=== PATIENT | male | born 1960 | race Caucasian/White ===

== ENCOUNTER 2024-11-16 13:34 | Emergency (ER) | payer MEDICAID, SELFPAY ==
[2024-11-16 13:35] VITALS: BMI 30.7
[2024-11-16 13:44] VITALS: BP 180/99; PULSE 81; RESP 18; TEMP 36.8; O2SAT 95
--- NOTE | 2024-11-16 14:02 | EDNOTE_ITS ---
Upper Extremity Injury RME/HPI General Chief Complaint: Hand/Wrist Problems Stated Complaint: INJURY TO LEFT HAND WITH SAW Time Seen by Provider: 11/16/24 13:51 Arrival date/time: 11/16/24 13:34 RME / HPI RME / HPI narrative: 64-year-old male patient came in for evaluation regarding multiple finger laceration with a table saw. Incident happened few minutes prior to ER visit. Patient sustained laceration to the left thumb, ring finger and middle finger, able to bend and extend the fingers without any limitation. Tetanus vaccination is unknown Related Data Previous Rx's ?Medication ?Instructions ?Recorded cephalexin 500 mg capsule 500 mg PO TID 7 days #21 cap s 11/16/24 ibuprofen 800 mg tablet 800 mg PO Q8H PRN pain #30 t abs 11/16/24 Allergies Allergy/AdvReac Type Severity Reaction Status Date / Time No Known Allergies Allergy Verified 11/16/24 13:36 Review of Systems Review of Systems Narrative Review of Systems: Review of system reviewed and within normal limits except mentioned in HPI ED Exam Narrative Physical exam: VITAL SIGNS: Reviewed. GENERAL APPEARANCE: Alert and interactive, follows commands, no acute distress, HEAD AND FACE: Non-traumatic. ENT: PERRL, pink conjunctivitis, eyelid no trauma, Mucous membrane moist. NECK: Supple, nontender, no nuchal rigidity. CHEST: No tenderness, no crepitus, no paradoxical movement, no retractions. LUNGS: Clear, well ventilated, symmetric, no rales, no wheezing, no ronchi, no stridor, good breath sounds bilaterally. HEART: Regular rate, regular rhythm, no murmur, no gallops. ABDOMEN: Soft, positive bowel sounds, nondistended, no guarding, nontender, no rebound, no masses, RECTAL: Deferred. GENITAL: Deferred. NEUROLOGICAL: Gross motor function intact sensory function intact, Appropriate for age. MUSCULOSKELETAL: low back nontender, full range of motion. EXTREMITIES: 2 cm laceration thumb palmar aspect, 1 cm laceration left index finger dorsal aspect, 2 cm laceration, dorsal aspect, middle finger, full range of motion of all 5 fingers of the hand SKIN: Color pink, dry, no rash, no lacerations, no abrasions, no contusions. LYMPHATICS: Deferred. Course Quality Measures none Orders Category Date Time Status Irrigate Wound NOW Care 11/16/24 14:01 Completed Lidocaine 1% 20 ml [Xylocaine 1% 20 ML] Med 11/16/24 14:01 Discontinued 10 ml INFL X1 ONE TET,DIP/PERT AC (Adult)-Tdap [Boostrix Adult (Tdap) Med 11/16/24 14:01 Disco ntinued Vacc] 0.5 ml IMI .ONCE ONE cephALEXin [Keflex] Med 11/16/24 16:00 Discontinued 500 mg PO X1 ONE Vital Signs Vital signs: Vital Signs Temperature 98.2 F 11/16/24 13:44 Pulse Rate 81 11/16/24 13:44 Respiratory Rate 18 11/16/24 13:44 Blood Pressure 180/99 H 11/16/24 13:44 Pulse Oximetry (%) 95 11/16/24 13:44 Oxygen Delivery Method Room Air 11/16/24 13:44 Procedures -ED Laceration Laceration 1: Site: hand Size (cm): 2 Description: irregular Depth: simple, single layer Local Anesthetic: lidocaine 1% Amount of anesthesia used (mL): 6 Pre-repair: wound explored, irrigated extensively and deep structures intact Skin layer closed with: nylon Size (cm): 5-0 Number of sutures: 6 Technique: simple, interrupted Extremity Injury MDM Narrative MDM Narrative:: 64-year-old male patient came in for evaluation regarding multiple finger lac eration with a table saw. Incident happened few minutes prior to ER visit. Patient sustained laceration to the left thumb, ring finger and middle finger, able to bend and extend the fingers without any limitation. Tetanus vaccination is unknown Repair and suturing was done by me see procedure notes patient received Boostrix, Keflex, Motrin patient tolerated procedure well. Some of the lacerat ion was not closely approximated because of loss of the skin there is no sign of tendon injury. There is no sign of bony abnormality. Patient data External records reviewed:: None Clinical information provided by:: patient Social determinants that could affect healthcare access:: none Patient has the following chronic illnesses:: None How is presenting disease/condition affected by chronic disease/condition?: no c hronic disease Evaluation data The following diagnostics were reviewed and interpreted by me:: other (specify) Lab and/or radiology exams considered but not ordered:: None Interpretation Summary: None Medications / Prescriptions Medications or Prescriptions considered but not ordered:: None Medication administrations:: Medication Administration History Discontinued Medications Cephalexin HCl (Cephalexin 250 Mg Capsule) 500 mg PO X1 ONE Stop: 11/16/24 16:01 Last Admin: 11/16/24 16:25 Dose: 500 mg Documented By: SAM Diphtheria/Tetanus/Acell Pertussis (Diphth,Pertuss(Acell),Tet Vac 0.5 Ml Syr- Adult) 0.5 ml IMi .ONCE ONE Stop: 11/16/24 14:02 Last Admin: 11/16/24 14:50 Dose: 0.5 ml Documented By: SAM Lidocaine HCl (Lidocaine Hcl 1% 20 Ml Vial) 10 ml INFL X1 ONE Stop: 11/16/24 14:02 Last Admin: 11/16/24 14:49 Dose: 10 ml Documented By: SAM Boostrix Keflex Consultations Consultation(s) initiated? (list below): No Diagnosis Upper Extremity Injury Differential Diagnosis: other (Finger laceration, abrasion, contusion) Most likely diagnosis given after review of the tests above:: Multiple finger laceration Admission Indicated Admission indicated?: not indicated Admission Request Was there a request for admission?: No Disposition Plan Disposition Plan: Discharge Discharge Attestation Discharge Attestation: The patient and all family members were given an opportunity to ask questions and understood the discharge instructions. Discharge instructions specifically effects, indications for sooner follow up or return to the emergency department, and the expected course of current diagnosis. Patient condition: Stable Discharge Plan Plan Patient Disposition: HOME (Self Care) Disposition Comment: Stable Prescriptions/Referrals Prescriptions/Med Rec: New cephalexin 500 mg capsule 500 mg PO TID 7 Days Qty: 21 0RF ibuprofen 800 mg tablet 800 mg PO Q8H PRN (Reason: pain) Qty: 30 0RF Referrals: Paul Fernandez MD [Primary Care Provider] - In 1 week Problem List Clinical Impression: Finger laceration Patient/Caregiver Discharge Instructions Discharge Activity: activity as tolerated Education Materials: ED Laceration: All Closures Additional Instructions: Thank you for the opportunity for serving you today. You are stable for discharged . You are advised to: Follow-up with your PCP in 1 to 2 days Return to ED for worsening of symptoms Increase oral fluids Take medication as prescribed Daily dressing with Neosporin as needed For removal of sutures in 10 days Print Language: Wolof Stand Alone Forms: Sara Award Info., Patient Portal Info Letter
[2024-11-16] MEDS: LIDOCAINE HCL 1% 20 ML VIAL 10 ML INFL (14:49)
[2024-11-16] MEDS: DIPHTH,PERTUSS(ACELL),TET VAC 0.5 ML SYR- ADULT IMi (14:50)
[2024-11-16] MEDS: cephALEXin 250 MG CAPSULE 500 MG PO (16:25)
== END 2024-11-16 16:40 | disposition home or self-care (01) ==
PROVIDERS: Emergency Provider Emergency Medicine; PCP Family Medicine
DX: S61.012A Laceration without foreign body of left thumb without damage to nail, initial encounter (principal); S61.215A Laceration without foreign body of left ring finger without damage to nail, initial encounter; S61.213A Laceration without foreign body of left middle finger without damage to nail, initial encounter; W31.2XXA Contact with powered woodworking and forming machines, initial encounter; Z23 Encounter for immunization
CPT/HCPCS: 12002; 90471; 90715; 99283; J3490; A9270

== ENCOUNTER → 2024-12-09 | Outpatient (CLI) | payer MEDICARE, MEDICAID, SELFPAY | END | disposition home or self-care (01) | PROVIDERS: Visit Provider Surgery | DX: S61.012A Laceration without foreign body of left thumb without damage to nail, initial encounter (principal); S61.211A Laceration without foreign body of left index finger without damage to nail, initial encounter; S61.213A Laceration without foreign body of left middle finger without damage to nail, initial encounter; X58.XXXA Exposure to other specified factors, initial encounter; I10 Essential (primary) hypertension; E11.69 Type 2 diabetes mellitus with other specified complication; Z79.84 Long term (current) use of oral hypoglycemic drugs; Z87.891 Personal history of nicotine dependence | CPT/HCPCS: 97597; 99214; A9270; G0463 ==

== ENCOUNTER → 2024-12-16 | Outpatient (CLI) | payer MEDICARE, MEDICAID, SELFPAY | END | disposition home or self-care (01) | LOC: SWHD 08:30 | PROVIDERS: PCP Physician Assistant; Referring Provider Physician Assistant; Visit Provider Student in an Organized Health Care Education/Training Program | DX: S61.012A Laceration without foreign body of left thumb without damage to nail, initial encounter (principal); S61.211A Laceration without foreign body of left index finger without damage to nail, initial encounter; S61.213A Laceration without foreign body of left middle finger without damage to nail, initial encounter; X58.XXXA Exposure to other specified factors, initial encounter; I10 Essential (primary) hypertension; E11.69 Type 2 diabetes mellitus with other specified complication; Z79.84 Long term (current) use of oral hypoglycemic drugs; Z87.891 Personal history of nicotine dependence | CPT/HCPCS: 99213; G0463 ==